=== PATIENT | male | born 2000 ===

== ENCOUNTER 2022-03-04 20:54 | Emergency (ER) | payer SELFPAY ==
[2022-03-04 21:33] LABS: HEMOGLOBIN 15.4 gm/dl (14.0-17.5); RED BLOOD COUNT 4.87 M/UL (4.20-5.50); WHITE BLOOD COUNT 5.6 K/UL (4.5-11.0)
[2022-03-04 21:53] LABS: BUN/CREATININE RATIO 21 (0-10)
[2022-03-05] MEDS ORDERED: GLUCOPHAGE 500500 MG GT (02:28)
== END 2022-03-05 02:47 | disposition home or self-care (01) ==
LOC: ER1 20:54
PROVIDERS: Emergency Medicine
DX: U07.1 COVID-19 (principal); K75.9 Inflammatory liver disease, unspecified
CPT/HCPCS: 0240U; 71045; 80053; 81001; 85025; 85379; 93005; 99285